=== PATIENT | male | born 2000 | race Caucasian/White ===

== ENCOUNTER 2021-02-18 14:17 | Emergency (ER) | payer BC ==
[~2021-02-18 14:17] MED LIST: AUGMENTIN 875-1 EACH PO; IBUPROFEN800 MG PO
== END 2021-02-18 15:00 | disposition home or self-care (01) ==
LOC: ER1 14:17
DX: S00.411A Abrasion of right ear, initial encounter (principal); F17.290 Nicotine dependence, other tobacco product, uncomplicated; Z88.0 Allergy status to penicillin; Z88.8 Allergy status to other drugs, medicaments and biological substances; X58.XXXA Exposure to other specified factors, initial encounter
CPT/HCPCS: 99282